=== PATIENT | female | born 1980 | race African-American/Black ===

== ENCOUNTER 2018-01-08 22:58 | Emergency (ER) | payer SELFPAY ==
--- NOTE | 2018-01-09 01:19 | ER ---
Nurse's Notes [facility] Name: Laly Ron Age: 37 yrs Sex: Female : 1980 Arrival Date: 01/08/2018 Time: 23:01 Bed 26 Private MD: None, None Diagnosis: Acute pharyngitis Presentation: 01/08 23:15 Presenting complaint: Patient states: she is having throat pain, difficulty swallowing bb and has been having fever x 4 days she is taking tylenol but symptoms not improving, pt is a day care worker. Transition of care: patient was not received from another setting of care. Onset of symptoms was January 04, 2018. Risk Assessment: Do you want to hurt yourself or someone else? Patient reports no desire to harm self or others. Initial Sepsis Screen: Does the patient meet any 2 criteria? No. Patient's initial sepsis screen is negative. Does the patient have a suspected source of infection? No. Patient's initial sepsis screen is negative. Care prior to arrival: None. 23:15 Method Of Arrival: Ambulatory bb 23:15 Acuity: FATMATA 4 bb Historical: - Allergies: 23:18 No Known Allergies; bb - Home Meds: 23:18 None [Active]; bb - PMHx: 23:18 None; bb - PSHx: 23:18 Tubal ligation; bb - Immunization history:: Adult Immunizations up to date. - Social history:: Smoking status: Patient/guardian denies using tobacco, Patient/guardian denies using alcohol, street drugs. - Ebola Screening: : No symptoms or risks identified at this time. Screenin:20 Abuse screen: Denies threats or abuse. Denies injuries from another. Nutritional rv screening: No deficits noted. Tuberculosis screening: No symptoms or risk factors identified. Fall Risk None identified. Assessment: 23:20 General: Appears in no apparent distress. comfortable, Behavior is calm, cooperative. rv Pain: Complains of pain in throat. Neuro: Level of Consciousness is awake, alert, obeys commands, Oriented to person, place, time, situation. Cardiovascular: Capillary refill < 3 seconds. Respiratory: Airway is patent Respiratory effort is even, Breath sounds are clear bilaterally. GI: No signs and/or symptoms were reported involving the gastrointestinal system. : No signs and/or symptoms were reported regarding the genitourinary system. EENT: Throat is pink. Vital Signs: 23:18 BP 184 / 126; Pulse 121; Resp 16 S; Temp 98.5(O); Pulse Ox 100% on R/A; Weight 167.83 bb kg (R); Height 4 ft. 11 in. (149.86 cm) (R); Pain 10/10; 23:38 BP 183 / 122; rv 23:18 Body Mass Index 74.73 (167.83 kg, 149.86 cm) bb ED Course: 23:01 Patient arrived in ED. es 23:02 None, None is Private Physician. es 23:08 Nato Honeycutt MD is Attending Physician. kdr 23:17 Triage completed. bb 23:18 Arm band placed on Patient placed in an exam room, on a stretcher, on pulse oximetry. bb 23:21 Patient has correct armband on for positive identification. Bed in low position. Call rv light in reach. Side rails up X 1. Pulse ox on. NIBP on. 23:24 Vernell Ewing, RN is Primary Nurse. kr2 01/09 00:02 Warm blanket given. kr2 02:07 No provider procedures requiring assistance completed. Patient did not have IV access rv during this emergency room visit. Administered Medications: 01:30 Drug: Bicillin L-A 1.2 million units Route: IM; Site: left deltoid; rv 02:07 Follow up: Response: No adverse reaction rv 01:30 Drug: [place] 10 mg-325 mg 1 tabs Route: PO; rv 02:07 Follow up: Response: No adverse reaction rv Outcome: 01:19 Discharge ordered by . kdr 02:07 Discharged to home ambulatory. rv 02:07 Condition: good 02:07 Discharge instructions given to patient, Instructed on discharge instructions, follow up and referral plans. medication usage, Demonstrated understanding of instructions, follow-up care, medications, Prescriptions given X 1. 02:07 Patient left the ED. rv Signatures: Nato Honeycutt MD MD kdr Salyer, Edna es Ballard, Brenda, RN RN bb Vernell Ewing, MURPHY RN kr2 Osito Raymond RN RN rv
--- NOTE | 2018-01-09 01:19 | EDPHYS ---
Physician Documentation [facility] Name: Laly Ron Age: 37 yrs Sex: Female : 1980 Arrival Date: 01/08/2018 Time: 23:01 Bed 26 Private MD: None, None ED Physician Nato Honeycutt HPI: 01/09 03:45 This 37 yrs old Black Female presents to ER via Ambulatory with complaints of Sore kdr Throat. 03:45 The patient presents with sore throat. The patient describes throat pain as burning, kdr raw, scratchy. Onset: The symptoms/episode began/occurred gradually, 4 day(s) ago. Severity of symptoms: At their worst the symptoms were mild, in the emergency department the symptoms are unchanged. Modifying factors: The symptoms are alleviated by nothing, the symptoms are aggravated by fluids, foods, swallowing, Patient's oral intake status: good. Associated signs and symptoms: Pertinent positives: fever, Pertinent negatives chest pain, chills, cough, diarrhea, dysphagia. The patient has not experienced similar symptoms in the past. The patient has not recently seen a physician. Historical: - Allergies: 01/08 23:18 No Known Allergies; bb - Home Meds: 23:18 None [Active]; bb - PMHx: 23:18 None; bb - PSHx: 23:18 Tubal ligation; bb - Immunization history:: Adult Immunizations up to date. - Social history:: Smoking status: Patient/guardian denies using tobacco, Patient/guardian denies using alcohol, street drugs. - Ebola Screening: : No symptoms or risks identified at this time. ROS: 01/09 03:45 Constitutional: Negative for fever, chills, and weight loss, Eyes: Negative for injury, kdr pain, redness, and discharge, Neck: Negative for injury, pain, and swelling, Cardiovascular: Negative for chest pain, palpitations, and edema, Respiratory: Negative for shortness of breath, cough, wheezing, and pleuritic chest pain, Abdomen/GI: Negative for abdominal pain, nausea, vomiting, diarrhea, and constipation, Back: Negative for injury and pain, : Negative for injury, bleeding, discharge, and swelling, MS/Extremity: Negative for injury and deformity, Skin: Negative for injury, rash, and discoloration, Neuro: Negative for headache, weakness, numbness, tingling, and seizure activity. Psych: Negative for depression, anxiety, suicide ideation, homicidal ideation, and hallucinations, Allergy/Immunology: Negative for hives, rash, and allergies, Endocrine: Negative for neck swelling, polydipsia, polyuria, polyphagia, and marked weight changes, Hematologic/Lymphatic: Negative for swollen nodes, abnormal bleeding, and unusual bruising. ENT: Positive for difficulty swallowing, sore throat, Negative for drainage from ear(s), ear pain, foreign body sensation, Gum pain hearing loss, pulling at ears, Teeth pain nasal discharge, rhinorrhea, sinus congestion, sinus pain, dental pain. Exam: 03:45 Constitutional: This is a well developed, well nourished patient who is awake, alert, kdr and in no acute distress. Head/Face: Normocephalic, atraumatic. Eyes: Pupils equal round and reactive to light, extra-ocular motions intact. Lids and lashes normal. Conjunctiva and sclera are non-icteric and not injected. Cornea within normal limits. Periorbital areas with no swelling, redness, or edema. Neck: Trachea midline, no thyromegaly or masses palpated, and no cervical lymphadenopathy. Supple, full range of motion without nuchal rigidity, or vertebral point tenderness. No Meningismus. Chest/axilla: Normal chest wall appearance and motion. Nontender with no deformity. No lesions are appreciated. Cardiovascular: Regular rate and rhythm with a normal S1 and S2. No gallops, murmurs, or rubs. Normal PMI, no JVD. No pulse deficits. Respiratory: Lungs have equal breath sounds bilaterally, clear to auscultation and percussion. No rales, rhonchi or wheezes noted. No increased work of breathing, no retractions or nasal flaring. 03:45 ENT: External ear(s): are unremarkable, Mouth: Lips: normal, Oral mucosa: normal, Gums: normal with healthy appearance, Tongue: is normal, Posterior pharynx: Airway: normal, Tonsils: with erythema, Uvula: normal. Vital Signs: 01/08 23:18 BP 184 / 126; Pulse 121; Resp 16 S; Temp 98.5(O); Pulse Ox 100% on R/A; Weight 167.83 bb kg (R); Height 4 ft. 11 in. (149.86 cm) (R); Pain 10/10; 23:38 BP 183 / 122; rv 23:18 Body Mass Index 74.73 (167.83 kg, 149.86 cm) bb MDM: 01/09 01:19 Patient medically screened. kdr 03:45 Data reviewed: vital signs, nurses notes, lab test result(s). Counseling: I had a kdr detailed discussion with the patient and/or guardian regarding: the historical points, exam findings, and any diagnostic results supporting the discharge/admit diagnosis, lab results, the need for outpatient follow up. 01/09 00:00 Order name: Rapid Strep; Complete Time: :18 kdr Administered Medications: 01:30 Drug: Bicillin L-A 1.2 million units Route: IM; Site: left deltoid; rv 02:07 Follow up: Response: No adverse reaction rv 01:30 Drug: [place] 10 mg-325 mg 1 tabs Route: PO; rv 02:07 Follow up: Response: No adverse reaction rv Disposition: 01/09/18 01:19 Discharged to Home. Impression: Acute pharyngitis. - Condition is Stable. - Discharge Instructions: Pharyngitis. - Prescriptions for Tramadol 50 mg Oral Tablet - take 1 tablet by ORAL route every 8 hours as needed; 12 tablet. - Medication Reconciliation Form, Thank You Letter, Antibiotic Education form. - Follow up: Private Physician; When: 2 - 3 days; Reason: If symptoms return, Further diagnostic work-up, Recheck today's complaints, Continuance of care, Re-evaluation by your physician. - Problem is new. - Symptoms have improved. Signatures: Dispatcher [employer] EDGA Nato Honeycutt MD MD kdr Darlene Gutierrez, RN RN bb Osito Raymond, RN RN rv Corrections: (The following items were deleted from the chart) 02:07 01:19 01/09/2018 01:19 Discharged to Home. Impression: Acute pharyngitis. Condition is rv Stable. Forms are Medication Reconciliation Form, Thank You Letter, Antibiotic Education, Prescription Opioid Use. Follow up: Private Physician; When: 2 - 3 days; Reason: If symptoms return, Further diagnostic work-up, Recheck today's complaints, Continuance of care, Re-evaluation by your physician. Problem is new. Symptoms have improved. kdr
[2018-01-09] MEDS ORDERED: HYDROCODONE/APAP 10/325 TAB ONE (01:30)
[2018-01-09] MEDS ORDERED: PEN G BENZ LA 1.2MU/2ML SYRINGE IM ONE (01:32)
== END 2018-01-09 02:07 | disposition home or self-care (01) ==
LOC: ER 22:58
DX: J02.9 Acute pharyngitis, unspecified (principal)
CPT/HCPCS: 87081; 96372; 99283; J0561

== ENCOUNTER 2019-11-13 19:38 | Emergency (ER) | payer SELFPAY ==
--- OUTSIDE RECORDS SUMMARY | 2019-11-13 19:41 | XMS REPORT | Continuity of Care Document ---
:1980 Author Organization [facility] t Address [address] [place] [address] [address]. [address] [place] [address] Care Team Providers Name Role Phone Unavailable Unavailable Unavailable Problems This patient has no known problems. Allergies, Adverse Reactions, Alerts This patient has no known allergies or adverse reactions. Medications This patient has no known medications. Procedures This patient has no known procedures. Results This patient has no known results.
[2019-11-13 20:52] LABS: Absolute Lymphocytes (CBC) 1.5 K/uL (0.7-4.9); Basophils % 1.4 % (0-1.3); Hematocrit 40.2 % (36.0-45.0); Lymphocytes % 21.6 % (15.3-44.8); MPV 10.2 fL (7.6-11.3); RBC Red Blood Cell Count 5.03 M/uL (3.86-4.86)
[2019-11-13] MEDS ORDERED: NA CHLORIDE 0.9% 1,000 ML ONE (20:53)
[2019-11-13] MEDS ORDERED: ONDANSETRON 4 MG/2 ML VIAL ONE (20:53)
[2019-11-13 21:20] LABS: ALT/SGPT 52 U/L (12-78); AST/SGOT 37 U/L (15-37); Albumin 3.4 g/dL (3.4-5.0); Alkaline Phosphatase 90 U/L (45-117); BUN Blood Urea Nitrogen 9 mg/dL (7-18); Bicarbonate 26 mmol/L (21-32); Bilirubin Direct < 0.1 mg/dL (0-0.2); Bilirubin Total 0.3 mg/dL (0.2-1.0); Lipase 87 U/L (73-393); Potassium 3.8 mmol/L (3.5-5.1); Protein, Total 8.4 g/dL (6.4-8.2); Sodium Level 136 mmol/L (136-145)
[2019-11-13 21:27] LABS: Glucose Level 412 mg/dL (74-106)
[2019-11-13] MEDS ORDERED: METFORMIN HCL 500 MG TAB ONE (22:49)
--- NOTE | 2019-11-13 23:49 | EDPHYS ---
Physician Documentation [facility] Name: Laly Ron Age: 38 yrs Sex: Female : 1980 Arrival Date: 11/13/2019 Time: 19:41 Bed 13 Private MD: ED Physician Rey Stallworth HPI: 11/12 20:30 This 38 yrs old Black Female presents to ER via Ambulatory with complaints of Urinary cp Frequency, Nausea. 20:30 The patient presents with urinary symptoms, frequency. cp 20:30 Associated signs and symptoms: Pertinent positives: nausea, Pertinent negatives: cp diarrhea, dysuria, fever, hematuria, vaginal bleeding, vaginal discharge, vomiting. 20:30 Onset: The symptoms/episode began/occurred 4 day(s) ago. Severity of symptoms: in the emergency department the symptoms are unchanged, despite home interventions. Historical: - Allergies: 19:54 No Known Drug Allergies; ll1 - PMHx: 19:54 Hypertension; ll1 - PSHx: 19:54 Tubal ligation; ll1 - Immunization history:: Flu vaccine is not up to date. - Social history:: Smoking status: Patient denies any tobacco usage or history of. Patient/guardian denies using alcohol, street drugs, tobacco products. ROS: 20:35 Constitutional: Negative for body aches, chills, fever, poor PO intake. cp 20:35 Eyes: Negative for injury, pain, redness, and discharge. cp 20:35 ENT: Negative for ear pain, sore throat, difficulty swallowing, difficulty handling secretions. 20:35 Cardiovascular: Negative for chest pain, edema, palpitations. 20:35 Respiratory: Negative for cough, shortness of breath, wheezing. 20:35 Abdomen/GI: Positive for nausea, Negative for abdominal pain, vomiting, diarrhea, constipation. 20:35 Back: Negative for pain at rest, pain with movement. 20:35 : Positive for urinary frequency, Negative for pelvic pain, flank pain, burning with urination, difficulty urinating, vaginal bleeding, vaginal discharge. 20:35 Neuro: Negative for altered mental status, headache, weakness. 20:35 All other systems are negative. Exam: 20:40 Constitutional: The patient appears in no acute distress, alert, awake, cp non-diaphoretic, non-toxic, well developed, well nourished, obese. 20:40 Head/Face: Normocephalic, atraumatic. cp 20:40 Eyes: Periorbital structures: appear normal, Conjunctiva: normal, no exudate, no injection, Sclera: no appreciated abnormality, Lids and lashes: appear normal, bilaterally. 20:40 ENT: External ear(s): are unremarkable, Nose: is normal, Mouth: Lips: moist, Oral mucosa: moist, Posterior pharynx: Airway: no evidence of obstruction, patent. 20:40 Chest/axilla: Inspection: normal, Palpation: is normal, no crepitus, no tenderness. 20:40 Cardiovascular: Rate: tachycardic, Rhythm: regular, Edema: is not appreciated, JVD: is not appreciated. 20:40 Respiratory: the patient does not display signs of respiratory distress, Respirations: normal, no use of accessory muscles, no retractions, labored breathing, is not present, Breath sounds: are clear throughout, no decreased breath sounds, no stridor. 20:40 Abdomen/GI: Exam negative for discomfort, distension, guarding, Inspection: obese cp 20:40 Skin: no rash present. cp 20:40 Neuro: Orientation: to person, place \T\ time. Mentation: is normal. Vital Signs: 19:52 BP 178 / 127; Pulse 126; Resp 19; Temp 98.2; Pulse Ox 98% ; Pain 6/10; ll1 22:00 BP 168 / 114; Pulse 115; Resp 20; Pulse Ox 100% on R/A; vc 11/13 00:00 BP 158 / 108; Pulse 103; Resp 20; Pulse Ox 100% on R/A; vc MDM: 11/12 20:23 Patient medically screened. cp 21:00 Differential diagnosis: urinary tract infection, dehydration, diabetes mellitus. cp 23:47 Data reviewed: vital signs, nurses notes, lab test result(s). cp 23:47 Counseling: I had a detailed discussion with the patient and/or guardian regarding: the cp historical points, exam findings, and any diagnostic results supporting the discharge/admit diagnosis, lab results, the need for outpatient follow up, for definitive care, a family practitioner, to return to the emergency department if symptoms worsen or persist or if there are any questions or concerns that arise at home. Response to treatment: the patient's symptoms have mildly improved after treatment, patient is well hydrated. and as a result, I will discharge patient. ED course: VSS. Patient instructed on need for f/u with family physician for diabetes. 11/12 20:11 Order name: Glucose, Ancillary Testing; Complete Time: 20:24 EDMS 11/12 20:29 Order name: Basic Metabolic Panel cp 11/12 20:29 Order name: CBC with Diff; Complete Time: 22:04 cp 11/12 20:29 Order name: Hepatic Function; Complete Time: 22:04 cp 11/12 20:29 Order name: Lipase; Complete Time: 22:04 cp 11/12 20:29 Order name: Ketone, Serum; Complete Time: 22:04 cp 11/12 20:29 Order name: IV Saline Lock; Complete Time: 22:03 cp 11/12 20:30 Order name: Basic Metabolic Panel; Complete Time: 22:04 EDMS 11/12 22:22 Order name: Glucose, Ancillary Testing; Complete Time: 22:30 EDMS 11/12 23:12 Order name: Glucose, Ancillary Testing; Complete Time: 23:43 EDMS 11/12 23:44 Interpretation: Abnormal: GLUC,ANCIL 320. cp 11/12 20:29 Order name: Labs collected and sent; Complete Time: 22:03 cp 11/12 22:04 Order name: Accucheck Blood Glucose; Complete Time: 22:33 cp Administered Medications: 21:15 Drug: NS 0.9% 1000 ml Route: IV; Rate: 1 bolus; Site: right antecubital; vc 21:50 Drug: Zofran (Ondansetron) 4 mg Route: IVP; Site: right antecubital; vc 23:00 Follow up: Response: No adverse reaction; Nausea is decreased vc 22:43 Drug: metFORMIN 500 mg Route: PO; vc 11/13 00:00 Follow up: Response: No adverse reaction vc 11/12 22:43 Drug: NS 0.9% 1000 ml Route: IV; Rate: 1 bolus; Site: right antecubital; vc Disposition: 11/13 06:14 Co-signature as Attending Physician, Rey Stallworth MD. [email or web address] Disposition: 11/13/19 23:48 Discharged to Home. Impression: Diabetes mellitus due to underlying condition with hyperglycemia. - Condition is Stable. - Discharge Instructions: Blood Glucose Monitoring, Adult, Diabetes Mellitus and Food. - Prescriptions for Metformin 1,000 mg Oral Tablet - take 0.5 tablet by ORAL route every 12 hours with morning and evening meals; 30 tablet. - Medication Reconciliation Form, Thank You Letter, Antibiotic Education, Prescription Opioid Use form. - Follow up: Private Physician; When: 2 - 3 days; Reason: hyperglycemia. - Problem is new. - Symptoms have improved. Signatures: Dispatcher [employer] EDMS Derrick Lockwood PA PA cp Calcote, Vanessa, RN RN vc Lewis, Lynsay, RN RN ll1 Rey Stallworth MD MD [email or web address] Corrections: (The following items were deleted from the chart) 00:06 11/12 23:48 11/13/2019 23:48 Discharged to Home. Impression: Diabetes mellitus due to vc underlying condition with hyperglycemia. Condition is Stable. Forms are Medication Reconciliation Form, Thank You Letter, Antibiotic Education, Prescription Opioid Use. Follow up: Private Physician; When: 2 - 3 days; Reason: hyperglycemia. Problem is new. Symptoms have improved. cp 11/13 22:27 22:16 Head/Face: Normocephalic, atraumatic. cp cp 22:27 22:16 Eyes: Periorbital structures: appear normal, Conjunctiva: normal, no exudate, no cp injection, Sclera: no appreciated abnormality, Lids and lashes: appear normal, bilaterally, cp 22:27 22:16 ENT: External ear(s): are unremarkable, Nose: is normal, Mouth: Lips: moist, Oral cp mucosa: moist, Posterior pharynx: Airway: no evidence of obstruction, patent, cp 22:27 22:16 Chest/axilla: Inspection: normal, Palpation: is normal, no crepitus, no cp tenderness, cp 22:27 22:16 Cardiovascular: Rate: tachycardic, Rhythm: regular, Edema: is not appreciated, cp JVD: is not appreciated, cp 22:27 22:16 Respiratory: the patient does not display signs of respiratory distress, cp Respirations: normal, no use of accessory muscles, no retractions, labored breathing, is not present, Breath sounds: are clear throughout, no decreased breath sounds, no stridor, cp
--- NOTE | 2019-11-13 23:49 | ER ---
Nurse's Notes [facility] Name: Laly Ron Age: 38 yrs Sex: Female : 1980 Arrival Date: 11/13/2019 Time: 19:41 Bed 13 Private MD: Diagnosis: Diabetes mellitus due to underlying condition with hyperglycemia Presentation: 11/12 19:52 Chief complaint: Patient states: Frequent urination for 4 days. Intermittent nausea ll1 today. No fever. Coronavirus screen: Patient denies a cough. Patient denies shortness of breath or difficulty breathing. Patient denies measured and/or subjective temperature greater than 100.4F prior to today's visit. Patient denies travel on a cruise ship or to a country the [facility] currently lists as an affected area. Patient denies contact with known and/or suspected case of COVID-19. Proceed with normal triage. Ebola Screen: Patient denies travel to an Ebola-affected area in the 21 days before illness onset. Initial Sepsis Screen: Does the patient meet any 2 criteria? HR > 90 bpm. Risk Assessment: Do you want to hurt yourself or someone else? Patient reports no desire to harm self or others. Onset of symptoms was November 09, 2019. 19:52 Method Of Arrival: Ambulatory ll1 19:52 Acuity: FATMATA 2 ll1 20:00 Initial Sepsis Screen: Does the patient have a suspected source of infection? No. vc Patient's initial sepsis screen is negative. Triage Assessment: 20:00 General: Appears in no apparent distress. uncomfortable, Behavior is calm, cooperative, vc appropriate for age. General: Appears obese. Pain: Denies pain. GI: Reports nausea. Historical: - Allergies: 19:54 No Known Drug Allergies; ll1 - PMHx: 19:54 Hypertension; ll1 - PSHx: 19:54 Tubal ligation; ll1 - Immunization history:: Flu vaccine is not up to date. - Social history:: Smoking status: Patient denies any tobacco usage or history of. Patient/guardian denies using alcohol, street drugs, tobacco products. Screenin:00 Abuse screen: Denies threats or abuse. Nutritional screening: No deficits noted. vc Tuberculosis screening: No symptoms or risk factors identified. Fall Risk None identified. Assessment: 20:00 GI: Abdomen is round non-distended, obese, Reports nausea. vc 20:00 General: Appears in no apparent distress. uncomfortable, obese, Behavior is anxious, vc crying. 20:00 Reassessment:. Pain: Denies pain. Neuro: Level of Consciousness is awake, alert, obeys vc commands, Oriented to person, place, time, situation, Appropriate for age. Cardiovascular: Capillary refill < 3 seconds Patient's skin is warm and dry. Respiratory: Airway is patent Respiratory effort is even, unlabored, Respiratory pattern is regular, symmetrical. : Reports urinary frequency. 21:00 Reassessment: Patient appears in no apparent distress at this time. Patient and/or vc family updated on plan of care and expected duration. Pain level reassessed. Patient is alert, oriented x 3, equal unlabored respirations, skin warm/dry/pink. 21:28 Reassessment: Patient appears in no apparent distress at this time. sg 22:00 Reassessment: Patient appears in no apparent distress at this time. Patient and/or vc family updated on plan of care and expected duration. Pain level reassessed. Patient is alert, oriented x 3, equal unlabored respirations, skin warm/dry/pink. Patient states symptoms have improved. 23:00 Reassessment: Patient appears in no apparent distress at this time. Patient and/or vc family updated on plan of care and expected duration. Pain level reassessed. Patient is alert, oriented x 3, equal unlabored respirations, skin warm/dry/pink. Patient denies pain at this time. Patient states symptoms have improved. 11/13 00:00 Reassessment: Patient appears in no apparent distress at this time. Patient and/or vc family updated on plan of care and expected duration. Pain level reassessed. Patient is alert, oriented x 3, equal unlabored respirations, skin warm/dry/pink. Patient denies pain at this time. Patient states feeling better. Patient states symptoms have improved. Vital Signs: 11/12 19:52 BP 178 / 127; Pulse 126; Resp 19; Temp 98.2; Pulse Ox 98% ; Pain 6/10; ll1 22:00 BP 168 / 114; Pulse 115; Resp 20; Pulse Ox 100% on R/A; vc 11/13 00:00 BP 158 / 108; Pulse 103; Resp 20; Pulse Ox 100% on R/A; vc ED Course: 11/12 19:41 Patient arrived in ED. do 19:53 Triage completed. ll1 19:54 Arm band placed on Patient notified of wait time. ll1 20:00 Patient has correct armband on for positive identification. Bed in low position. Call vc light in reach. Pulse ox on. NIBP on. 20:22 Derrick Lockwood PA is PHCP. cp 20:22 Rey Stallworth MD is Attending Physician. cp 20:32 Yakelin Bai, MURPHY is Primary Nurse. vc 21:20 Notified Nurse Practitioner and/or Physician Sand Analyst of a critical lab result(s), sg blood glucose of 412. 22:29 Rajan Means pts dad [phone]. mw2 11/13 00:05 No provider procedures requiring assistance completed. IV discontinued, intact, vc bleeding controlled, No redness/swelling at site. Pressure dressing applied. Administered Medications: 11/12 21:15 Drug: NS 0.9% 1000 ml Route: IV; Rate: 1 bolus; Site: right antecubital; vc 21:50 Drug: Zofran (Ondansetron) 4 mg Route: IVP; Site: right antecubital; vc 23:00 Follow up: Response: No adverse reaction; Nausea is decreased vc 22:43 Drug: metFORMIN 500 mg Route: PO; vc 11/13 00:00 Follow up: Response: No adverse reaction vc 11/12 22:43 Drug: NS 0.9% 1000 ml Route: IV; Rate: 1 bolus; Site: right antecubital; vc Outcome: 23:48 Discharge ordered by MD. cp 11/13 00:05 Discharged to home ambulatory. vc Condition: good Discharge instructions given to patient, Instructed on discharge instructions, follow up and referral plans. medication usage, Demonstrated understanding of instructions, follow-up care, medications, Prescriptions given X 1. 00:06 Patient left the ED. vc Signatures: Ga Martinez RN Derrick Brock PA PA cp [place], Danielle do [place], MyKena mw2 Yakelin Bai RN RN vc Sussy Lr RN RN ll1 Corrections: (The following items were deleted from the chart) 11/12 19:58 19:52 Acuity: FATMATA 3 ll1 ll1
[2019-11-14 00:24] VITALS: TEMP 98.2
[2019-11-14 00:26] VITALS: O2SAT 100
[2019-11-14 00:27] VITALS: BP 158/108
== END 2019-11-14 00:06 | disposition home or self-care (01) ==
LOC: ER 19:38
DX: E11.65 Type 2 diabetes mellitus with hyperglycemia (principal); I10 Essential (primary) hypertension
CPT/HCPCS: 36415; 80048; 80076; 82010; 82947; 83690; 85025; 96374; 99283; J2405; J7030

== ENCOUNTER 2021-09-03 14:36 | Emergency (ER) | payer SELFPAY ==
--- OUTSIDE RECORDS SUMMARY | 2021-09-03 14:39 | XMS REPORT | Continuity of Care Document ---
:1980 Author Organization [facility] t Address [address] [place] [address] [address] [place] [address] Care Team Providers Name Role Phone Unavailable Unavailable Unavailable Problems This patient has no known problems. Allergies, Adverse Reactions, Alerts This patient has no known allergies or adverse reactions. Medications This patient has no known medications. Procedures This patient has no known procedures. Results This patient has no known results.
[2021-09-03 15:43] LABS: Absolute Lymphocytes (CBC) 1.4 K/uL (0.7-4.9); Hematocrit 36.5 % (36.0-45.0); Lymphocytes % 26.6 % (15.3-44.8); MPV 9.3 fL (7.6-11.3); RBC Red Blood Cell Count 4.73 M/uL (3.86-4.86)
[2021-09-03 16:01] LABS: Albumin 3.3 g/dL (3.4-5.0); Bilirubin Total 0.3 mg/dL (0.2-1.0); Potassium 3.5 mmol/L (3.5-5.1); Protein, Total 7.3 g/dL (6.4-8.2)
[2021-09-03 16:08] LABS: Magnesium 1.8 mg/dL (1.8-2.4)
[2021-09-03] MEDS ORDERED: NA CHLORIDE 0.9% 1,000 ML ONE (16:23)
[2021-09-03] MEDS ORDERED: ONDANSETRON 4 MG/2 ML VIAL ONE ×2 (16:31→16:32)
--- NOTE | 2021-09-03 17:37 | EDPHYS ---
Physician Documentation [facility] Name: Laly Ron Age: 40 yrs Sex: Female : 1980 Arrival Date: 09/03/2021 Time: 14:38 Bed 26 Private MD: UMER Physician Derrick Farooq HPI: 09/03 16:35 This 40 yrs old Black Female presents to ER via Ambulatory with complaints of Chest jr8 Pain, Vomiting, Abdominal Pain. 16:35 Modifying factors: The patient symptoms are alleviated by nothing, the patient symptoms jr8 are aggravated by nothing. The patient has not experienced similar symptoms in the past. The patient has not recently seen a physician. This is a 40-year-old female patient that presents to the emergency room with nausea, upper abdominal discomfort, chest tightness. Patient stated that she had a sleeve completed and has not been taking in the fluids that she normally does. Has been more fatigued and tired and dizzy. On and off nausea secondary to the surgery as well. Stated that she just feels rundown. Denies any other complaints at this time.. Historical: - Allergies: 15:02 No Known Allergies; iw - PMHx: 15:02 Diabetes mellitus; Hypertension; iw - PSHx: 15:02 gastric sleeve; tubal ligation; iw - Immunization history:: Adult Immunizations up to date, Client reports receiving the 2nd dose of the Covid vaccine. - Social history:: Smoking status: Patient denies any tobacco usage or history of. Patient/guardian denies using alcohol. ROS: 16:35 Eyes: Negative for injury, pain, redness, and discharge, ENT: Negative for injury, jr8 pain, and discharge, Neck: Negative for injury, pain, and swelling, Respiratory: Negative for shortness of breath, cough, wheezing, and pleuritic chest pain, Back: Negative for injury and pain, MS/Extremity: Negative for injury and deformity, Skin: Negative for injury, rash, and discoloration, Neuro: Negative for headache, weakness, numbness, tingling, and seizure. 16:35 Cardiovascular: Negative for chest pain, edema, orthopnea, palpitations, paroxysmal nocturnal dyspnea. 16:35 Abdomen/GI: Positive for abdominal pain, nausea, vomiting, Negative for diarrhea, hematemesis, black/tarry stool. Exam: 16:35 Constitutional: This is a well developed, well nourished patient who is awake, alert, jr8 and in no acute distress. Eyes: Pupils equal round and reactive to light, extra-ocular motions intact. Lids and lashes normal. Conjunctiva and sclera are non-icteric and not injected. Cornea within normal limits. Periorbital areas with no swelling, redness, or edema. ENT: Nares patent. No nasal discharge, no septal abnormalities noted. Oropharynx with no redness, swelling, or masses, exudates, or evidence of obstruction, uvula midline. Mucous membranes moist. Neck: Trachea midline, no thyromegaly or masses palpated, and no cervical lymphadenopathy. Supple, full range of motion without nuchal rigidity, or vertebral point tenderness. No Meningismus. Chest/axilla: Normal chest wall appearance and motion. Nontender with no deformity. No lesions are appreciated. Cardiovascular: Regular rate and rhythm with a normal S1 and S2. No gallops, murmurs, or rubs. No JVD. No pulse deficits. Respiratory: Lungs have equal breath sounds bilaterally, clear to auscultation and percussion. No rales, rhonchi or wheezes noted. No increased work of breathing, no retractions or nasal flaring. Abdomen/GI: Soft, non-tender, with normal bowel sounds. No distension or tympany. No guarding or rebound. No evidence of tenderness throughout. Back: No spinal tenderness. No costovertebral tenderness. Full range of motion. Skin: Warm, dry with normal turgor. Normal color with no rashes, no lesions, and no evidence of cellulitis. MS/ Extremity: Pulses equal, no cyanosis. Neurovascular intact. Full, normal range of motion. Neuro: Awake and alert, GCS 15, oriented to person, place, time, and situation. Motor strength 5/5 in all extremities. Sensory grossly intact Vital Signs: 15:02 BP 154 / 110; Pulse 96; Resp 16; Temp 97.7; Pulse Ox 100% on R/A; iw 16:58 BP 149 / 98; Pulse 86; Resp 18; Pulse Ox 99% on R/A; ld1 17:42 BP 159 / 119; Pulse 77; Resp 18; Pulse Ox 100% on R/A; ld1 MDM: 15:13 Patient medically screened. jr8 17:17 Data reviewed: vital signs, nurses notes, lab test result(s), EKG, and as a result, I jr8 will discharge patient. Data interpreted: Pulse oximetry: on room air is 99 %. Interpretation: normal. Counseling: I had a detailed discussion with the patient and/or guardian regarding: the historical points, exam findings, and any diagnostic results supporting the discharge/admit diagnosis, lab results, the need for outpatient follow up, a family practitioner, to return to the emergency department if symptoms worsen or persist or if there are any questions or concerns that arise at home. Response to treatment: the patient's symptoms have mildly improved after treatment, patient is well hydrated. 09/03 15:03 Order name: CBC with Diff; Complete Time: 16:07 09/03 15:03 Order name: CMP; Complete Time: 16:08 09/03 15:03 Order name: Lipase; Complete Time: 16:08 09/03 16:05 Order name: Magnesium; Complete Time: 16:08 EDNY 09/03 15:03 Order name: IV Saline Lock; Complete Time: 16:00 09/03 15:03 Order name: Labs collected and sent; Complete Time: 16:00 09/03 15:13 Order name: EKG - Nurse/Tech; Complete Time: 15:51 jr8 Administered Medications: 16:31 Drug: NS 0.9% 1000 ml Route: IV; Rate: 1000 ml; Site: left wrist; ld1 17:30 Follow up: IV Status: Completed infusion iw 16:31 Drug: Zofran (Ondansetron) 4 mg Route: IVP; Site: left wrist; ld1 Disposition Summary: 09/03/21 17:36 Discharge Ordered Location: Home jr8 Problem: new jr8 Symptoms: have improved jr8 Condition: Stable jr8 Diagnosis - Dehydration jr8 Followup: jr8 - With: Private Physician - When: 2 - 3 days - Reason: Recheck today's complaints, Continuance of care, Re-evaluation by your physician Discharge Instructions: - Discharge Summary Sheet jr8 - Dehydration, Adult jr8 Forms: - Medication Reconciliation Form jr8 - Thank You Letter jr8 - Antibiotic Education jr8 - Prescription Opioid Use jr8 - Work release form ld1 Signatures: Dispatcher [employer] Ling Ruiz RN RN Roly Chou PA PA jr8 Ivette Canales RN RN ld1 Corrections: (The following items were deleted from the chart) 16:05 15:13 MAGNESIUM+C.LAB.CHRISTIANOZ ordered. EDMS EDMS
--- NOTE | 2021-09-03 17:37 | ER ---
Nurse's Notes [facility] Name: Laly Ron Age: 40 yrs Sex: Female : 1980 Arrival Date: 09/03/2021 Time: 14:38 Bed 26 Private MD: Diagnosis: Dehydration Presentation: 09/03 15:01 Chief complaint: Patient states: can't keep nothing down X 4 days, had gastric sleeve a iw month ago , just feeling bad. Coronavirus screen: At this time, the client does not indicate any symptoms associated with coronavirus-19. Ebola Screen: Patient negative for fever greater than or equal to 101.5 degrees Fahrenheit, and additional compatible Ebola Virus Disease symptoms Patient denies exposure to infectious person. Patient denies travel to an Ebola-affected area in the 21 days before illness onset. No symptoms or risks identified at this time. Initial Sepsis Screen: Does the patient meet any 2 criteria? No. Patient's initial sepsis screen is negative. Does the patient have a suspected source of infection? No. Patient's initial sepsis screen is negative. Risk Assessment: Do you want to hurt yourself or someone else? Patient reports no desire to harm self or others. Onset of symptoms was August 30, 2021. 15:01 Method Of Arrival: Ambulatory iw 15:01 Acuity: FATMATA 3 iw Historical: - Allergies: 15:02 No Known Allergies; iw - PMHx: 15:02 Diabetes mellitus; Hypertension; iw - PSHx: 15:02 gastric sleeve; tubal ligation; iw - Immunization history:: Adult Immunizations up to date, Client reports receiving the 2nd dose of the Covid vaccine. - Social history:: Smoking status: Patient denies any tobacco usage or history of. Patient/guardian denies using alcohol. Screenin:58 Abuse screen: Denies threats or abuse. Denies injuries from another. Nutritional ld1 screening: No deficits noted. Tuberculosis screening: No symptoms or risk factors identified. Fall Risk None identified. Assessment: 16:25 Reassessment: Pt c/o nausea, MARKETING RESEARCHER was notified. . aa5 16:25 Neuro: Level of Consciousness is awake, alert, obeys commands, Oriented to person, aa5 place, time, situation. Respiratory: Airway is patent Respiratory effort is even, unlabored, Respiratory pattern is regular, symmetrical. Derm: Skin is dry, Skin is normal, Skin temperature is warm. 16:35 Reassessment: Warm blankets provided. . aa5 16:58 General: Appears in no apparent distress. comfortable, Behavior is calm, cooperative, ld1 appropriate for age. Pain: Complains of pain in chest Pain does not radiate. Pain currently is 3 out of 10 on a pain scale. Quality of pain is described as heavy, Pain began gradually. Neuro: Level of Consciousness is awake, alert, obeys commands, Oriented to person, place, time, situation. Cardiovascular: Capillary refill < 3 seconds Patient's skin is warm and dry. Rhythm is sinus rhythm. Respiratory: Airway is patent Respiratory effort is even, unlabored. GI: Abdomen is non-distended, obese. : No signs and/or symptoms were reported regarding the genitourinary system. EENT: No signs and/or symptoms were reported regarding the EENT system. Derm: No signs and/or symptoms reported regarding the dermatologic system. Musculoskeletal: No signs and/or symptoms reported regarding the musculoskeletal system. 17:42 Reassessment: Patient appears in no apparent distress at this time. Patient and/or ld1 family updated on plan of care and expected duration. Pain level reassessed. Patient is alert, oriented x 3, equal unlabored respirations, skin warm/dry/pink. Vital Signs: 15:02 BP 154 / 110; Pulse 96; Resp 16; Temp 97.7; Pulse Ox 100% on R/A; iw 16:58 BP 149 / 98; Pulse 86; Resp 18; Pulse Ox 99% on R/A; ld1 17:42 BP 159 / 119; Pulse 77; Resp 18; Pulse Ox 100% on R/A; ld1 ED Course: 14:38 Patient arrived in ED. as 15:02 Triage completed. iw 15:03 Arm band placed on. iw 15:12 Roly Rico PA is PHCP. jr8 15:12 Derrick Farooq MD is Attending Physician. jr8 15:23 Ling Arango RN is Primary Nurse. iw 15:51 EKG done, by ED staff, reviewed by Roly JORDAN. em1 16:58 Patient has correct armband on for positive identification. Placed in gown. Bed in low ld1 position. Call light in reach. Side rails up X2. seafood technology specialist on. Pulse ox on. NIBP on. Door closed. Noise minimized. Warm blanket given. 16:58 No provider procedures requiring assistance completed. Inserted saline lock: 22 gauge ld1 in left wrist, using aseptic technique. Patient maintains SpO2 saturation greater than 95% on room air. 17:42 IV discontinued, intact, bleeding controlled, No redness/swelling at site. ld1 Administered Medications: 16:31 Drug: NS 0.9% 1000 ml Route: IV; Rate: 1000 ml; Site: left wrist; ld1 17:30 Follow up: IV Status: Completed infusion iw 16:31 Drug: Zofran (Ondansetron) 4 mg Route: IVP; Site: left wrist; ld1 Outcome: 17:36 Discharge ordered by . jocy 17:42 Discharged to home ambulatory. ld1 17:42 Condition: stable 17:42 Discharge instructions given to patient, Instructed on discharge instructions, follow up and referral plans. Demonstrated understanding of instructions, follow-up care. 17:57 Patient left the ED. ld1 Signatures: Letty Johnson Irene, RN RN iw Luiz Johnson em1 Le Moreno, RN RN aa5 Roly Rico PA PA jr8 Ivette Canales, RN RN ld1
[2021-09-03 19:28] VITALS: TEMP 97.7
[2021-09-03 19:30] VITALS: BP 159/119; O2SAT 100
--- NOTE | 2021-09-04 10:20 | EKG ---
Test Date: 2021-09-03 Test Time: 15:44:48 Quantitative Researcher: SHAUNA MEASUREMENT RESULTS: Intervals: Rate: 93 MI: 164 QRSD: 90 QT: 388 QTc: 482 [place]: P: 29 MI: 164 QRS: 122 T: 15 INTERPRETIVE STATEMENTS: Normal sinus rhythm Right axis deviation Prolonged QT Abnormal ECG Compared to ECG 04/13/2016 22:16:54 Prolonged QT interval now present Sinus tachycardia no longer present Electronically Signed On 09-04-21 10:17:36 CDT by Heath Hernandez
== END 2021-09-03 17:57 | disposition home or self-care (01) ==
LOC: ER 14:36
DX: E86.0 Dehydration (principal); R11.2 Nausea with vomiting, unspecified; Z98.84 Bariatric surgery status; E11.9 Type 2 diabetes mellitus without complications; I10 Essential (primary) hypertension
CPT/HCPCS: 36415; 80053; 83690; 83735; 85025; 93005; 96361; 96374; 99285; J2405; J7030

== ENCOUNTER 2021-11-01 09:43 | Emergency (ER) | payer SELFPAY ==
[2021-11-01] MEDS ORDERED: dexAMETHasone 10 MG/ML VIAL ONE (13:09)
[2021-11-01] MEDS ORDERED: PEN G BENZ LA 1.2MU/2ML SYRINGE IM ONE (13:10)
--- NOTE | 2021-11-01 13:18 | ER ---
Nurse's Notes [facility] Name: Laly Ron Age: 40 yrs Sex: Female : 1980 Arrival Date: 11/01/2021 Time: 09:45 Bed DIS4 Private MD: Diagnosis: Streptococcal pharyngitis Presentation: 11/01 09:59 Chief complaint: Patient states: sore throat and feeling hot that began last night. PT ss reports that her daughter has strep throat right now. Denies cough. Coronavirus screen: Client denies travel out of the [place] in the last 14 days. Ebola Screen: Patient denies exposure to infectious person. Patient denies travel to an Ebola-affected area in the 21 days before illness onset. Initial Sepsis Screen: Does the patient meet any 2 criteria? No. Patient's initial sepsis screen is negative. Does the patient have a suspected source of infection? No. Patient's initial sepsis screen is negative. Risk Assessment: Do you want to hurt yourself or someone else? Patient reports no desire to harm self or others. Onset of symptoms was October 31, 2021. 09:59 Method Of Arrival: Ambulatory ss 09:59 Acuity: FATMATA 4 ss Historical: - Allergies: 10:01 No Known Allergies; ss - PMHx: 10:01 diabetes mellitus; Hypertension; ss - PSHx: 10:01 gastric sleeve; tubal ligation; ss - Immunization history:: Client reports receiving the 2nd dose of the Covid vaccine. - Social history:: Smoking status: Patient denies any tobacco usage or history of. Screenin:28 Abuse screen: Denies threats or abuse. Denies injuries from another. Nutritional ss screening: No deficits noted. Tuberculosis screening: Never had TB. Fall Risk None identified. Assessment: 13:28 Reassessment: Patient appears in no apparent distress at this time. Patient and/or ss family updated on plan of care and expected duration. Pain level reassessed. Patient is alert, oriented x 3, equal unlabored respirations, skin warm/dry/pink. Vital Signs: 09:59 BP 156 / 112; Pulse 108; Resp 18; Temp 97.1(TE); Pulse Ox 98% on R/A; Weight 167.83 kg; ss Height 4 ft. 11 in. (149.86 cm); Pain 8/10; 09:59 Body Mass Index 74.73 (167.83 kg, 149.86 cm) ss ED Course: 09:45 Patient arrived in ED. rg4 09:46 [facility]ivas [facility] maciel 09:46 Shaquille Emanuel DO is Attending Physician. [facility] 10:01 Triage completed. ss 10:01 Arm band placed on right wrist. ss 13:19 Renea Alberto, RN is Primary Nurse. ss 13:28 Patient has correct armband on for positive identification. ss 13:28 No provider procedures requiring assistance completed. Patient did not have IV access ss during this emergency room visit. Administered Medications: 13:06 Drug: Bicillin L-A (penicillin G Benzathine) 1.2 million units Route: IM; Site: right ss deltoid; 13:30 Follow up: Response: No adverse reaction ss 13:07 Drug: Decadron (dexamethasone) 10 mg Route: IM; Site: left deltoid; ss 13:30 Follow up: Response: No adverse reaction ss Medication: 13:28 VIS not applicable for this client. ss Outcome: 13:17 Discharge ordered by . [facility] 13:28 Discharged to home ambulatory. ss 13:28 Condition: good 13:28 Instructed on discharge instructions, follow up and referral plans. medication usage, Demonstrated understanding of instructions, follow-up care, medications, Prescriptions given X 13:30 Patient left the ED. Signatures: Moreno Rivas PA PA jmm Smirch, Shelby, RN RN Kev Kitty rg4
--- NOTE | 2021-11-01 13:18 | EDPHYS ---
Physician Documentation [facility] Name: Laly Ron Age: 40 yrs Sex: Female : 1980 Arrival Date: 11/01/2021 Time: 09:45 Bed DIS4 Private MD: ED Physician Shaquille Emanuel HPI: 11/01 12:23 This 40 yrs old Black Female presents to ER via Ambulatory with complaints of Fever, jmm Headache. 13:08 Onset: The symptoms/episode began/occurred gradually, 1 day(s) ago. Modifying factors: jmm there are no obvious modifying factors. This is a 40 year old female with a history of dm, htn that presents to the ED with complaints of sore throat, body aches beginning last night. Denies vomiting, diarrhea. Denies cough. Historical: - Allergies: 10:01 No Known Allergies; ss - PMHx: 10:01 diabetes mellitus; Hypertension; ss - PSHx: 10:01 gastric sleeve; tubal ligation; ss - Immunization history:: Client reports receiving the 2nd dose of the Covid vaccine. - Social history:: Smoking status: Patient denies any tobacco usage or history of. ROS: 13:08 Cardiovascular: Negative for chest pain, palpitations, and edema, Respiratory: Negative jmm for shortness of breath, cough, wheezing, and pleuritic chest pain. 13:08 Constitutional: Positive for body aches, chills. 13:08 ENT: Positive for sore throat. 13:08 All other systems are negative. Exam: 13:08 Constitutional: This is a well developed, well nourished patient who is awake, alert, jmm and in no acute distress. Head/Face: atraumatic. Eyes: EOMI, no conjunctival erythema appreciated 13:08 Neck: Trachea midline, Supple Chest/axilla: Normal chest wall appearance and motion. Cardiovascular: Regular rate and rhythm. No edema appreciated Respiratory: Normal respirations, no respiratory distress appreciated Abdomen/GI: Non distended Back: Normal ROM Skin: General appearance color normal 13:08 ENT: Posterior pharynx: Airway: normal, erythema, that is moderate. 13:08 Musculoskeletal/extremity: ROM: intact in all extremities. 13:08 Skin: Appearance: Color: normal in color. 13:08 Neuro: Orientation: is normal, Mentation: is normal, Memory: is normal. 13:08 Psych: Behavior/mood is pleasant, cooperative. Vital Signs: 09:59 BP 156 / 112; Pulse 108; Resp 18; Temp 97.1(TE); Pulse Ox 98% on R/A; Weight 167.83 kg; ss Height 4 ft. 11 in. (149.86 cm); Pain 8/10; 09:59 Body Mass Index 74.73 (167.83 kg, 149.86 cm) MDM: 12:23 Patient medically screened. [facility] 13:15 Data reviewed: vital signs, nurses notes. Counseling: I had a detailed discussion with genevieve the patient and/or guardian regarding: the historical points, exam findings, and any diagnostic results supporting the discharge/admit diagnosis, the need for outpatient follow up, to return to the emergency department if symptoms worsen or persist or if there are any questions or concerns that arise at home. ED course: Patient is alert and non toxic in appearance in the ED. No signs of resp distress. I do not suspect fire prevention captain or ludqigs. patient advised to follow up with pcp and otherwise given strict return precautions. patient understood and agrees with the plan of care. . 11/01 10:01 Order name: Strep; Complete Time: 10:43 11/01 10:03 Order name: Influenza Screen (a \\T\\ B); Complete Time: 10:43 [facility] 11/01 10:03 Order name: SARS-COV-2 RT PCR (Document "Date of Onset" if Symptomatic); Complete Time: [facility] 12:22 Administered Medications: 13:06 Drug: Bicillin L-A (penicillin G Benzathine) 1.2 million units Route: IM; Site: right ss deltoid; 13:30 Follow up: Response: No adverse reaction 13:07 Drug: Decadron (dexamethasone) 10 mg Route: IM; Site: left deltoid; 13:30 Follow up: Response: No adverse reaction Disposition: 19:59 Co-signature as Attending Physician, Shaquille Emanuel DO I was immediately available on-site ms3 in the Emergency Department for consultation in the care of the patient.. Disposition Summary: 11/01/21 13:17 Discharge Ordered Location: Home [facility] Condition: Stable [facility] Diagnosis - Streptococcal pharyngitis [facility] Followup: [facility] - With: Private Physician - When: 2 - 3 days - Reason: Recheck today's complaints, Continuance of care, Re-evaluation by your physician Discharge Instructions: - Discharge Summary Sheet maciel - Strep Throat, Adult maciel Forms: - Medication Reconciliation Form maciel - Thank You Letter maciel - Antibiotic Education maciel - Prescription Opioid Use maciel - Work release form Signatures: Dispatcher [employer] EDMoreno Elias PA PA jmm Smirch, Shelby, RN RN Shaquille Emanuel DO DO ms3
[2021-11-01 15:10] VITALS: BP 156/112; TEMP 97.1; O2SAT 98
== END 2021-11-01 13:30 | disposition home or self-care (01) ==
LOC: ER 09:43
DX: J02.0 Streptococcal pharyngitis (principal); Z20.822 Contact with and (suspected) exposure to COVID-19; E11.9 Type 2 diabetes mellitus without complications; I10 Essential (primary) hypertension
CPT/HCPCS: 87081; 87804; J0561; J1100; U0003

== ENCOUNTER 2022-12-10 09:50 | Emergency (ER) | payer SELFPAY ==
--- OUTSIDE RECORDS SUMMARY | 2022-12-10 09:53 | XMS REPORT | Continuity of Care Document ---
:1980 Author Organization [facility] t Address [address] [place] [address] [address] [place] [address] Care Team Providers Name Role Phone Unavailable Unavailable Unavailable Problems This patient has no known problems. Allergies, Adverse Reactions, Alerts This patient has no known allergies or adverse reactions. Medications This patient has no known medications. Procedures This patient has no known procedures. Results This patient has no known results.
[2022-12-10 10:37] LABS: SARS-CoV-2 Antigen Rapid Res Negative (Negative)
--- NOTE | 2022-12-10 10:41 | EDPHYS ---
Physician Documentation [facility] Name: Laly Ron Age: 41 yrs Sex: Female : 1980 Arrival Date: 12/10/2022 Time: 09:50 Bed 12 Private MD: ED Physician Renaldo Arvizu HPI: 12/10 10:39 This 41 yrs old Black Female presents to ER via Ambulatory with complaints of Sore rn Throat. 10:39 The patient presents with sore throat. The patient describes throat pain as raw. Onset: rn The symptoms/episode began/occurred 2 day(s) ago. Severity of symptoms: At their worst the symptoms were mild, in the emergency department the symptoms are unchanged. Modifying factors: The symptoms are alleviated by nothing, the symptoms are aggravated by swallowing. The patient has experienced a previous episode. The patient has not recently seen a physician. Historical: - Allergies: 10:01 No Known Allergies; ap3 - Home Meds: 10:01 None [Active]; ap3 - PMHx: 10:01 diabetes mellitus; Hypertension; ap3 - PSHx: 10:01 gastric sleeve; tubal ligation; ap3 - Family history:: not pertinent. - Hospitalizations: : No recent hospitalization is reported. ROS: 10:39 Constitutional: Negative for fever, chills, and weight loss, Eyes: Negative for injury, rn pain, redness, and discharge, ENT: + sore throat Neck: Negative for injury, pain, and swelling, Cardiovascular: Negative for chest pain, palpitations, and edema, Respiratory: Negative for shortness of breath, cough, wheezing, and pleuritic chest pain, Abdomen/GI: Negative for abdominal pain, nausea, vomiting, diarrhea, and constipation. Exam: 10:39 Constitutional: This is a well developed, well nourished patient who is awake, alert, rn and in no acute distress. ENT: + tonsillar hypertrophy with mild exudate, uvula midline and without edema. No stridor. Neck: Trachea midline, no masses palpated, and no cervical lymphadenopathy. Supple, full range of motion without nuchal rigidity, or vertebral point tenderness. No Meningismus. Vital Signs: 10:00 BP 177 / 119; Pulse 100; Resp 17; Temp 97.7; Pulse Ox 100% ; Pain 8/10; ap3 10:00 Pain Scale: Adult ap3 MDM: 09:56 Patient medically screened. rn 10:40 Differential diagnosis: gastroesophageal reflux disease, group A strep tonsillitis, rn influenza, pharyngitis, tonsillitis, viral syndrome. Data reviewed: vital signs, nurses notes, lab test result(s), and as a result, I will discharge patient. Counseling: I had a detailed discussion with the patient and/or guardian regarding: the historical points, exam findings, and any diagnostic results supporting the discharge/admit diagnosis, lab results, the need for outpatient follow up, to return to the emergency department if symptoms worsen or persist or if there are any questions or concerns that arise at home. Special discussion: I discussed with the patient/guardian in detail that at this point there is no indication for admission to the hospital. It is understood, however, that if the symptoms persist or worsen the patient needs to return immediately for re-evaluation. 12/10 10:00 Order name: SARS RAPID; Complete Time: 10:42 rn 12/10 10:00 Order name: Flu; Complete Time: 10:42 rn 12/10 10:00 Order name: Strep; Complete Time: 10:42 rn Administered Medications: No medications were administered Disposition Summary: 12/10/22 10:40 Discharge Ordered Location: Home rn Problem: new rn Symptoms: have improved rn Condition: Stable rn Diagnosis - Streptococcal tonsillitis rn Followup: rn - With: Private Physician - When: As needed - Reason: Recheck today's complaints, Re-evaluation by your physician Discharge Instructions: - Discharge Summary Sheet rn - Strep Throat, Adult rn Forms: - Medication Reconciliation Form rn - Thank You Letter rn - Antibiotic afternoon nanny - Prescription Opioid Use rn - Patient Portal Instructions rn - Leadership Thank You Letter rn Prescriptions: - Augmentin 875-125 mg Oral Tablet - take 1 tablet by ORAL route every 12 hours for 10 days; 20 tablet; Refills: 0, rn Product Selection Permitted Signatures: Dispatcher [employer] Renaldo Barrera MD MD rn Prokisch, Amanda, RN RN ap3
--- NOTE | 2022-12-10 10:41 | ER ---
Nurse's Notes [facility] Name: Laly Ron Age: 41 yrs Sex: Female : 1980 Arrival Date: 12/10/2022 Time: 09:50 Bed 12 Private MD: Diagnosis: Streptococcal tonsillitis Presentation: 12/10 10:00 Chief complaint: Patient states: she started having throat pain Friday12/08/22. patient ap3 also reports difficulty swallowing. Coronavirus screen: Client presents with at least one sign or symptom that may indicate coronavirus-19. Ebola Screen: No symptoms or risks identified at this time. Initial Sepsis Screen: Does the patient meet any 2 criteria? No. Patient's initial sepsis screen is negative. Does the patient have a suspected source of infection? No. Patient's initial sepsis screen is negative. Risk Assessment: Do you want to hurt yourself or someone else? Patient reports no desire to harm self or others. Onset of symptoms was December 08, 2022. 10:00 Method Of Arrival: Ambulatory ap3 10:00 Acuity: FATMATA 4 ap3 Triage Assessment: 10:01 General: Appears uncomfortable, Behavior is calm, cooperative, appropriate for age. ap3 Pain: Complains of pain in throat. EENT: Reports pain when swallowing. Neuro: Level of Consciousness is awake, alert, obeys commands, Oriented to person, place, time, situation. Cardiovascular: Patient's skin is warm and dry. Respiratory: Airway is patent Respiratory effort is even, unlabored, Respiratory pattern is regular, symmetrical. Historical: - Allergies: 10:01 No Known Allergies; ap3 - Home Meds: 10:01 None [Active]; ap3 - PMHx: 10:01 diabetes mellitus; Hypertension; ap3 - PSHx: 10:01 gastric sleeve; tubal ligation; ap3 - Family history:: not pertinent. - Hospitalizations: : No recent hospitalization is reported. Vital Signs: 10:00 BP 177 / 119; Pulse 100; Resp 17; Temp 97.7; Pulse Ox 100% ; Pain 8/10; ap3 10:00 Pain Scale: Adult ap3 ED Course: 09:52 Patient arrived in ED. im 09:56 Renaldo Arvizu MD is Attending Physician. rn 10:01 Triage completed. ap3 10:47 Renea Alexandre, RN is Primary Nurse. ss 10:48 No provider procedures requiring assistance completed. Patient did not have IV access ss during this emergency room visit. Administered Medications: No medications were administered Outcome: 10:40 Discharge ordered by . rn 10:48 Discharged to home ambulatory. ss 10:48 Condition: good 10:48 Discharge instructions given to patient, Instructed on discharge instructions, follow up and referral plans. medication usage, Demonstrated understanding of instructions, follow-up care, medications, Prescriptions given X 1. 10:48 Patient left the ED. ss Signatures: Renaldo Arvizu MD MD rn Blanchard, Shelby, RN RN Harper Perez RN RN ap3 Yoselin Riggs
[2022-12-10 10:58] VITALS: BP 177/119; TEMP 97.7; O2SAT 100
== END 2022-12-10 10:48 | disposition home or self-care (01) ==
LOC: ER 09:50
DX: J03.00 Acute streptococcal tonsillitis, unspecified (principal); Z20.822 Contact with and (suspected) exposure to COVID-19
CPT/HCPCS: 36415; 87081; 87804; 87811; 99283

== ENCOUNTER → 2023-07-03 | Emergency (ER) | payer SELFPAY ==
[~2023-07-03] MED LIST: DIPHENHYDRAMINE 50 MG/ML VIAL ONE; METOCLOPRAMIDE 10 MG/2mL INJ ONE; NA CHLORIDE 0.9% 1,000 ML ONE; NA CHLORIDE 0.9% 250 ML ONE; NICARDIPINE HCL 25 MG/10 ML IV ONE
--- OUTSIDE RECORDS SUMMARY | 2023-07-03 10:35 | XMS REPORT | Continuity of Care Document ---
Author Name Unknown Address [address] [place] [address] [place] [address] [employer] Address [address] [place] [address] [address] [place] [address] Care Team Providers Care Auto Garage Attendant Name Role Phone Unavailable Unavailable Unavailable
[2023-07-03 12:03] LABS: Specific Gravity 1.022 (1.005-1.030); Urine Bacteria <20 /HPF (<20); Urine Bilirubin NEGATIVE (Negative); Urine Blood Negative (Negative); Urine Clarity Extremely Turbid (Clear); Urine Color Light-Yellow (Yellow); Urine Glucose NEGATIVE (Negative); Urine Mucus Slight /HPF (None Seen); Urine Protein NEGATIVE (Negative); Urine RBC <5 /HPF (None Seen); Urine Urobilinogen Normal (Normal); Urine pH 6.5 (5.0-7.0)
[2023-07-03 12:23] LABS: Absolute Basophils 0.1 K/uL (0-0.5); Absolute Lymphocytes (CBC) 1.6 K/uL (0.7-4.9); Basophils % 1.1 % (0-1.3); Lymphocytes % 29.4 % (15.3-44.8); MPV 8.7 fL (7.6-11.3); Platelets 258 thou/uL (152-406); RBC Red Blood Cell Count 4.43 M/uL (3.86-4.86)
[2023-07-03 12:32] LABS: Protime INR 1.03
[2023-07-03 12:38] LABS: Anion Gap 7.8 mEq/L (5.0-15.0); Potassium 3.8 mEq/L (3.5-5.1); Troponin High Sensitivity 7.9 pg/mL (<58.9)
--- NOTE | 2023-07-03 14:14 | RAD REPORT ---
EXAM DESCRIPTION: CT - Head Brain Wo Cont - 07/03/2023 1:30 pm CLINICAL HISTORY: DIZZINESS COMPARISON: Head angio dated 07/03/2023; Neck Angio dated 07/03/2023 TECHNIQUE: Noncontrast head CT images were obtained without IV contrast. Multiplanar reformats were generated and reviewed. All CT scans are performed using dose optimization technique as appropriate and may include automated exposure control or mA/KV adjustment according to patient size. FINDINGS: No intracranial hemorrhage, mass, or edema. Midline structures are unremarkable. Normal ventricular caliber for age. Foci of hypoattenuation in the right basal ganglia region, nonspecific, but may represent small infar cts of indeterminate age. Mcgee-white matter differentiation is otherwise preserved. No abnormal extra -axial fluid collections. Mastoid air cells and visualized portions of the paranasal sinuses are clear. No acute bony findings. IMPRESSION: Small foci of hypoattenuation in the right basal ganglia region, nonspecific, but may re flect small infarcts of indeterminate age. If there is concern for acute ischemia, additional evaluat ion by MRI would provide improved imaging sensitivity.
--- NOTE | 2023-07-03 14:20 | RAD REPORT ---
EXAM DESCRIPTION: CT - Head angio - 07/03/2023 1:48 pm CLINICAL HISTORY: DIZZINESS COMPARISON: Neck Angio dated 07/03/2023; Head Brain Wo Cont dated 07/03/2023 TECHNIQUE: Axial CT angiography images of the head was performed with multiplanar and maximum intens ity projection reconstructions. Images performed following intravenous administration of iodinated co ntrast. All CT scans are performed using dose optimization technique as appropriate and may include automated exposure control or mA/KV adjustment according to patient size. FINDINGS: No evidence of large vessel occlusion, although slightly suboptimal timing limits evaluati on of the distal anterior and posterior circulation vessels particularly the MCA branches. No evidenc e of aneurysm or dissection flap is detected. No flow-limiting stenosis or vascular malformation iden tified. Antegrade flow is seen in the vertebral arteries. The vertebral arteries are codominant. The visualized dural venous sinuses are grossly patent. IMPRESSION: No evidence of large vessel occlusion or flow-limiting stenosis.
--- NOTE | 2023-07-03 14:37 | RAD REPORT ---
EXAM DESCRIPTION: CT - Neck Angio - 07/03/2023 1:48 pm CLINICAL HISTORY: dizziness COMPARISON: No comparisons TECHNIQUE: Axial CT angiography images of the neck was performed with multiplanar and maximum intens ity projection reconstructions. Images performed following intravenous administration of iodinated co ntrast. All CT scans are performed using dose optimization technique as appropriate and may include automated exposure control or mA/KV adjustment according to patient size. Quantification of carotid stenosis, if any, is performed according to NASCET criteria. FINDINGS: Beam hardening artifact limits evaluation at the level of the neck, obscuring proximal seg ments of the common carotid and vertebral arteries. A left aortic arch is identified with normal three vessel configuration of the great vessels. No significant flow abnormality is seen of the common carotid bilaterally. No significant stenosis is identified involving the cervical segments of both internal carotid arteri es. Normal flow is seen within both vertebral arteries. IMPRESSION: No significant flow abnormality of the neck vessels is identified, allowing for the limi tations mentioned above. CAROTID STENOSIS REFERENCE USING NASCET CRITERIA: % ICA stenosis = (1 - narrowest ICA diameter/diameter of distal cervical ICA) x 100. Mild - <50% stenosis. Moderate - 50-69% stenosis. Severe - 70-94% stenosis. Near occlusion - 95-99% stenosis. Occluded - 100% stenosis.
--- NOTE | 2023-07-03 14:49 | EDPHYS ---
Physician Documentation [facility] Name: Laly Ron Age: 42 yrs Sex: Female : 1980 Arrival Date: 07/03/2023 Time: 10:33 Bed 11 Private MD: ED Physician Cy Wade HPI: 07/02 11:26 This 42 yrs old Black Female presents to ER via Ambulatory with complaints of High ec2 Blood Pressure, Dizziness. 11:26 Patient arrives today for evaluation of dizziness. Patient states that she went to bed ec2 normal last night at approximately 11 PM. Woke up this morning at approximately 6:15 AM and noted that she had some what she describes as dizziness as well as left-sided weakness. States that symptoms have persisted. Patient reports some associated nausea, no vomiting, reports no recent cough or cold symptoms, no urinary complaints.. Historical: - Allergies: 12:18 No Known Allergies; aa5 - PMHx: 11:21 diabetes mellitus; Hypertension; kd3 - PSHx: 11:21 gastric sleeve; tubal ligation; kd3 - Immunization history:: Adult Immunizations up to date. - Social history:: Smoking status: unknown. ROS: 11:26 Constitutional: as per hpi ec2 Exam: 11:26 Constitutional: GEN: NAD Head: atraumatic Eyes: EOMI Ears: External ears are ec2 normal. CV: regular rate LUNGS: no respiratory distress ABD: non-distended SKIN: no evidence of rashes MSK: no evidence of trauma NEURO: moves all extremities equally, cranial nerves II through XII intact, strength intact all 4 extremities, no pronator drift, normal [id number]. Vital Signs: 11:18 BP 207 / 108; Pulse 78; Resp 19; Temp 97.8(O); Pulse Ox 100% ; Height 4 ft. 11 in. ; kd3 Pain 0/10; 11:24 Weight 141.97 kg; kd3 12:20 BP 192 / 104; Pulse 68; Resp 18; Temp 97.9(O); Pulse Ox 99% on R/A; rs5 12:20 BP 197 / 91; Pulse 80; Resp 18; Pulse Ox 99% on R/A; rs5 14:50 BP 195 / 95; Pulse 77; Resp 18; Pulse Ox 99% on R/A; rs5 15:22 BP 180 / 91; Pulse 81; Resp 17; Pulse Ox 99% on R/A; rs5 16:55 BP 185 / 93; Pulse 80; Resp 17; Pulse Ox 99% on R/A; rs5 11:18 Pain Scale: Adult kd3 MDM: 11:17 Patient medically screened. ec2 11:26 Data reviewed: vital signs. ED course: Patient arrives today for evaluation of ec2 dizziness and left-sided weakness. Examination remarkable for well-appearing nontoxic dividual is otherwise neuro intact who is noted to be hypertensive. Will obtain lab work, CT imaging as well as MR. Currently evaluated process ischemic stroke, hemorrhagic stroke, electrolyte disturbances as well as UTI and anemia. Will give the patient medications for headaches.. 11:54 ED course: EKG independently reviewed and interpreted by me, shows normal sinus rhythm, ec2 rate of 72, no acute ST segment elevations, nonconcerning intervals.. 12:17 ED course: Urine noninfectious appearing.. ec2 12:40 ED course: CBC shows slight anemia. Metabolic profile is reassuring. Troponin within ec2 normal ranges, coagulation profile unremarkable, urine is noninfectious appearing. Pending imaging. . 14:34 ED course: CT head shows age-indeterminate small infarct. CT angio shows no acute ec2 process. Pending MRI and CT neck. . 14:39 ED course: CT angio of the neck shows no acute process. Pending MRI. . ec2 14:47 ED course: I discussed case with radiology, patient with multiple foci of ec2 microhemorrhages. Will start the patient on Cardene drip for better blood pressure control. Will transfer the patient to neurosurgical capable facility, neuro ICU.. 15:24 ED course: I discussed case with Dr. Holbrook, ER physician at [facility] as ec2 well as neurology who agreed to accept this patient. Neurology wanted to allow for permissive hypertension given the with a suspect more likely to be a subacute ischemic pathology as opposed to hemorrhagic pathology. Updated the patient regarding plan of care. . 03 11:25 Order name: Basic Metabolic Panel; Complete Time: 12:39 ec2 07/02 11:25 Order name: CBC with Diff; Complete Time: 12:39 ec2 07/02 11:25 Order name: High Sensitivity Troponin; Complete Time: 12:39 ec2 07/02 11:25 Order name: Protime (+inr); Complete Time: 12:39 ec2 07/02 11:25 Order name: Ptt, Activated; Complete Time: 12:39 ec2 07/02 11:25 Order name: UAM; Complete Time: 12:17 ec2 07/02 11:41 Order name: Glucose, Ancillary Testing; Complete Time: 11:45 EDMS 07/02 11:25 Order name: CT Head Brain wo Cont; Complete Time: 14:34 ec2 07/02 11:25 Order name: CT Head Angio; Complete Time: 14:34 ec2 07/02 11:25 Order name: CT Neck Angio; Complete Time: 14:39 ec2 07/02 11:25 Order name: MRI - Brain Wo Cont; Complete Time: 15:00 ec2 07/02 11:25 Order name: EKG; Complete Time: 11:26 ec2 07/02 11:25 Order name: Accucheck; Complete Time: 12:40 ec2 07/02 11:25 Order name: Cardiac monitoring; Complete Time: 12:17 ec2 07/02 11:25 Order name: EKG - Nurse/Tech; Complete Time: 12:17 ec2 07/02 11:25 Order name: IV Saline Lock; Complete Time: 12:17 ec2 07/02 11:25 Order name: Labs collected and sent; Complete Time: 12:17 ec2 07/02 11:25 Order name: NPO; Complete Time: 12:17 ec2 07/02 11:25 Order name: O2 Per Protocol; Complete Time: 12:17 ec2 07/02 11:25 Order name: O2 Sat Monitoring; Complete Time: 12:40 ec2 07/02 11:25 Order name: Stroke Swallow Screen; Complete Time: 12:40 ec2 Administered Medications: 15:19 Discontinued: nicardipine5 mg/hr IV at calculated rate See Administration Instructions; aa5 (Standard concentration 25 mg / 250 mL NS); Recommended max rate 15 mg/hr; Titrate 2.5 mg/hr as often as every 15 minutes to achieve goal (see titration policy); Goal parameter SBP less than 160 mmHg 12:30 Drug: NS 0.9% IV 1000 ml IV at 1 bolus Per protocol; 1000 mL bolus Route: IV; Rate: 1 rs5 bolus; Site: left antecubital; 13:01 Follow up: Response: No adverse reaction rs5 12:30 Drug: metoCLOPramide IVP 10 mg IVP once; over 1 to 2 minutes Route: IVP; Site: left rs5 antecubital; 13:01 Follow up: Response: No adverse reaction rs5 12:30 Drug: diphenhydrAMINE IVP 25 mg IVP once Route: IVP; Site: left antecubital; rs5 13:10 Follow up: Response: No adverse reaction rs5 15:05 Drug: niCARdipine IV 5 mg/hr IV at calculated rate See Administration Instructions; rs5 (Standard concentration 25 mg / 250 mL NS); Recommended max rate 15 mg/hr; Titrate 2.5 mg/hr as often as every 15 minutes to achieve goal (see titration policy); Goal parameter SBP less than 160 mmHg Route: IV; Rate: calculated rate; Site: right antecubital; 15:18 Follow up: IV Status: Order to discontinue infusion rs5 Disposition Summary: 07/03/23 14:49 Transfer Ordered Notes: Transfer Location: Other Acute Care Facility ec2 Reason: Higher level of care ec2 Condition: Stable ec2 Problem: new ec2 Symptoms: are unchanged ec2 Accepting Physician: transferring doc(07/03/23 17:01) rs5 Diagnosis - Nontraumatic intracerebral hemorrhage, multiple localized ec2 Forms: - Medication Reconciliation Form ec2 - SBAR form ec2 Critical care time excluding procedures: 14:48 Critical care time: Bedside Care: 30 minutes, Consultation: 5 minutes. Total time: 35 ec2 minutes Signatures: Dispatcher [employer] EDLe Samayoa RN RN aa5 Evonne Shea RN RN kd3 Ted Gonzales RN RN rs5 Cy Wade MD MD ec2 Corrections: (The following items were deleted from the chart) 12:19 12:16 ED course: EKG independently reviewed and interpreted by me, shows normal sinus ec2 rhythm, rate of 68, no acute ST segment elevations, nonconcerning intervals. . ec2 12:19 12:17 ED course: Urine noninfectious appearing. Additional discussion with patient ec2 states that she is undergoing some significant stress with the passing of her son recently, ultimately I suspect this might be stress-induced, paresthesias are in a nonanatomic distribution as are bilateral, have a doubt for acute ischemic process or acute neurologic process. Will discharge home. Return precautions given. ec2 17:01 14:49 transferring doc ec2 rs5
--- NOTE | 2023-07-03 14:49 | ER ---
Nurse's Notes [facility] Name: Laly Ron Age: 42 yrs Sex: Female : 1980 Arrival Date: 07/03/2023 Time: 10:33 Bed 11 Private MD: Diagnosis: Nontraumatic intracerebral hemorrhage, multiple localized Presentation: 07/02 11:18 Chief complaint: Patient states: Pt states she had weight loss surgery about a year ago kd3 and today started feeling dizzy and off balance. Pt started feeling symptoms around 6:15 this morning. The school nurse took her blood pressure and it was in the 200's. Pt states she was having issues with her left arm. Pt reports feeling completely normal when she went to bed last night. Pt is non compliant with medications because "she does not like doctors". Pt also reports being diabetic. Coronavirus screen: Vaccine status:. Ebola Screen: No symptoms or risks identified at this time. Initial Sepsis Screen: Does the patient meet any 2 criteria? No. Patient's initial sepsis screen is negative. Does the patient have a suspected source of infection? No. Patient's initial sepsis screen is negative. Risk Assessment: Do you want to hurt yourself or someone else? Patient reports no desire to harm self or others. Onset of symptoms was July 03, 2023. 11:18 Method Of Arrival: Ambulatory kd3 11:18 Acuity: FATMATA 2 aa5 Triage Assessment: 11:21 General: Appears uncomfortable, Behavior is calm, cooperative. Pain: Denies pain. kd3 Historical: - Allergies: 12:18 No Known Allergies; aa5 - PMHx: 11:21 diabetes mellitus; Hypertension; kd3 - PSHx: 11:21 gastric sleeve; tubal ligation; kd3 - Immunization history:: Adult Immunizations up to date. - Social history:: Smoking status: unknown. Screenin:22 Abuse screen: Denies threats or abuse. Denies injuries from another. kd3 12:20 [facility] ED Fall Risk Assessment (Adult) History of falling in the last 3 months, rs5 including since admission No falls in past 3 months (0 pts) Confusion or Disorientation No (0 pts) Intoxicated or Sedated No (0 pts) Impaired Gait No (0 pts) Mobility Assist Device Used No (0 pt) Altered Elimination No (0 pt) Score/Fall Risk Level 0 - 2 = Low Risk Oriented to surroundings, Maintained a safe environment. Nutritional screening: No deficits noted. Tuberculosis screening: No symptoms or risk factors identified. Assessment: 12:20 Reassessment: Pt arrived in room. rs5 12:25 General: Appears in no apparent distress. uncomfortable, Behavior is calm, cooperative. rs5 Pain: Denies pain. Neuro: Level of Consciousness is awake, alert, obeys commands, Oriented to person, place, time, situation. 12:25 Neuro: Bilingual Hr Generalist are equal bilaterally Moves all extremities. Gait is steady, Speech is rs5 normal, Facial symmetry appears normal, Pupils are PERRLA, Intact pt states "My arm felt a little numb earlier today, my blood pressure was high and I felt dizzy and so that's why I came in. My arm is not numb at this moment". Cardiovascular: Patient's skin is warm and dry. Rhythm is regular. Respiratory: Airway is patent Respiratory effort is even, unlabored, Respiratory pattern is regular, symmetrical. GI: Abdomen is round non-distended. : No signs and/or symptoms were reported regarding the genitourinary system. EENT: No signs and/or symptoms were reported regarding the EENT system. Derm: Skin is intact, Skin is dry, Skin is normal, Skin temperature is warm. Musculoskeletal: Range of motion: intact in all extremities. 12:25 Reassessment: Provider notified of elevated blood pressure readings. rs5 13:30 Reassessment: Provider notified of elevated blood pressure readings . rs5 13:38 Reassessment: Patient and/or family updated on plan of care and expected duration. Pain rs5 level reassessed. Patient is alert, oriented x 3, equal unlabored respirations, skin warm/dry/pink. Patient denies pain at this time. Patient states feeling better. Patient states symptoms have improved. 14:27 Reassessment: No changes from previously documented assessment. rs5 14:28 Reassessment: Provider notified of elevated blood pressure readings . rs5 15:35 Reassessment: Patient and/or family updated on plan of care and expected duration. Pain rs5 level reassessed. Patient is alert, oriented x 3, equal unlabored respirations, skin warm/dry/pink. Neuro: Level of Consciousness is awake, alert, obeys commands, Oriented to person, place, time, situation, Bilingual Hr Generalist are equal bilaterally Moves all extremities. Gait is steady, Speech is normal, Facial symmetry appears normal, Pupils are PERRLA, Intact. 16:38 Reassessment: No changes from previously documented assessment. rs5 17:00 Reassessment: report given to EMS at bedside. rs5 Vital Signs: 11:18 BP 207 / 108; Pulse 78; Resp 19; Temp 97.8(O); Pulse Ox 100% ; Height 4 ft. 11 in. ; kd3 Pain 0/10; 11:24 Weight 141.97 kg; kd3 12:20 BP 192 / 104; Pulse 68; Resp 18; Temp 97.9(O); Pulse Ox 99% on R/A; rs5 12:20 BP 197 / 91; Pulse 80; Resp 18; Pulse Ox 99% on R/A; rs5 14:50 BP 195 / 95; Pulse 77; Resp 18; Pulse Ox 99% on R/A; rs5 15:22 BP 180 / 91; Pulse 81; Resp 17; Pulse Ox 99% on R/A; rs5 16:55 BP 185 / 93; Pulse 80; Resp 17; Pulse Ox 99% on R/A; rs5 11:18 Pain Scale: Adult kd3 ED Course: 10:36 Patient arrived in ED. mg5 10:41 Cy Wade MD is Attending Physician. ec2 11:21 Triage completed. kd3 11:21 Arm band placed on left wrist. kd3 12:15 Initial lab(s) drawn, by pa, sent to lab. Inserted saline lock: 22 gauge in left aa5 antecubital area, using aseptic technique. Blood collected. 12:20 Patient has correct armband on for positive identification. Bed in low position. Call rs5 light in reach. Side rails up X2. 12:41 No provider procedures requiring assistance completed. rs5 13:32 CT Head Brain wo Cont In Process Unspecified. EDMS 13:49 CT Head Angio In Process Unspecified. EDMS 13:49 CT Neck Angio In Process Unspecified. EDMS 14:10 MRI - Brain Wo Cont In Process Unspecified. EDMS 14:49 Ted Gonzales, RN is Primary Nurse. rs5 15:02 initiated a transfer with Baylee Juares from the [facility]. eb 15:11 connected the neurologist and emergency room doc construction technician for [facility] with Dr. asaf Wade for patient transfer consultation. 16:10 connected the hospitalist construction technician for [facility] with Dr. Wade for patient eb transfer consultation. 16:30 administrative approval given by Baylee Juares/ patient has been accepted to [facility] 22 tower room 2246/ Dr. Robles Cervantes has accepted the patient in transfer/ report to be called to [phone]. 17:01 Patient transferred, IV remains in place. rs5 Administered Medications: 15:19 Discontinued: nicardipine5 mg/hr IV at calculated rate See Administration Instructions; aa5 (Standard concentration 25 mg / 250 mL NS); Recommended max rate 15 mg/hr; Titrate 2.5 mg/hr as often as every 15 minutes to achieve goal (see titration policy); Goal parameter SBP less than 160 mmHg 12:30 Drug: NS 0.9% IV 1000 ml IV at 1 bolus Per protocol; 1000 mL bolus Route: IV; Rate: 1 rs5 bolus; Site: left antecubital; 13:01 Follow up: Response: No adverse reaction rs5 12:30 Drug: metoCLOPramide IVP 10 mg IVP once; over 1 to 2 minutes Route: IVP; Site: left rs5 antecubital; 13:01 Follow up: Response: No adverse reaction rs5 12:30 Drug: diphenhydrAMINE IVP 25 mg IVP once Route: IVP; Site: left antecubital; rs5 13:10 Follow up: Response: No adverse reaction rs5 15:05 Drug: niCARdipine IV 5 mg/hr IV at calculated rate See Administration Instructions; rs5 (Standard concentration 25 mg / 250 mL NS); Recommended max rate 15 mg/hr; Titrate 2.5 mg/hr as often as every 15 minutes to achieve goal (see titration policy); Goal parameter SBP less than 160 mmHg Route: IV; Rate: calculated rate; Site: right antecubital; 15:18 Follow up: IV Status: Order to discontinue infusion rs5 Medication: 12:42 VIS not applicable for this client. rs5 Outcome: 14:49 ER care complete, transfer ordered by MD. fried 17:00 Transferred by ground EMS Transfer form completed. X-rays sent w/ patient. rs5 17:00 Condition: stable 17:00 Instructed on the need for transfer, Demonstrated understanding of instructions, 17:01 Patient left the ED. rs5 Signatures: Dispatcher [employer] Le Hernandez RN RN aa5 Phyllis Willett Kyli, RN RN kd3 Ted Gonzales RN RN rs5 Karen Crawford 5 Cy Wade MD MD ec2 Corrections: (The following items were deleted from the chart) 15:01 11:18 Acuity: FATMATA 3 kd3 aa5
--- NOTE | 2023-07-03 14:55 | RAD REPORT ---
EXAM DESCRIPTION: MRI - Brain Wo Cont - 07/03/2023 2:12 pm CLINICAL HISTORY: DIZZINESS COMPARISON: Head CT and CT angiogram of the same day TECHNIQUE: Multiplanar multisequence MRI of the brain performed without IV contrast. FINDINGS: Motion artifact somewhat limits evaluation despite attempts at repeat imaging. Focus of diffusion restriction in the right lateral neelima sarkis, series 5, image 57, with no discrete c orresponding T2/FLAIR signal abnormality. Questionable focus of mild diffusion restriction in the silviano tral sarkis just on the preceding slice (image 58), with corresponding mild T2/FLAIR hyperintensity. Tiny foci of susceptibility signal abnormality in the bilateral basal ganglia regions and left parami dline sarkis, suggestive of remote micro hemorrhages. T2/FLAIR hyperintense foci in the right basal ganglia region without corresponding diffusion signal a bnormality are suggestive of sequelae of remote ischemia. Other subcortical and deep white matter T2/ FLAIR hyperintensities, nonspecific, but suggestive of chronic small vessel ischemic changes. No evidence of acute intracranial hemorrhage or abnormal extra-axial fluid collections. Mild diffuse parenchymal volume loss. Ventricular caliber otherwise within normal for age. Expanded empty sella is noted. No mass effect or midline shift. Major vascular flow voids are preserved. Mastoid air cells and paranasal sinuses are clear. IMPRESSION: Focus of diffusion restriction in the right lateral neelima sarkis, concerning for acute to s ubacute infarct. Questionable subacute infarct in the central sarkis. Foci of T2/FLAIR hyperintensity in the right basal ganglia region may reflect sequelae of remote isch emia. Few foci of susceptibility signal abnormality in the bilateral basal ganglia and left paramidline myriam s, suggestive of remote micro hemorrhages, likely of hypertensive etiology. Expanded empty sella is noted. Although nonspecific, correlation for signs/symptoms of idiopathic int racranial hypertension is recommended. The findings were communicated to Dr. Wade on 07/03/2023 at 14:47 hours.
[2023-07-03 17:21] VITALS: BP 185/93; TEMP 97.9; O2SAT 99
== END ==
LOC: ER 10:33
DX: I61.9 Nontraumatic intracerebral hemorrhage, unspecified (principal); I10 Essential (primary) hypertension; E11.9 Type 2 diabetes mellitus without complications
CPT/HCPCS: 36415; 70450; 70496; 70498; 70551; 80048; 81001; 82947; 84484; 85025; 85610; 85730; 93005; 99285; J1200; J2765; J7030; J7050; Q9967